=== PATIENT | female | born 1945 | race Caucasian/White ===

== ENCOUNTER → 2018-11-09 09:20 | Outpatient (POV) | payer MEDICARE, SELFPAY | PROVIDERS: Visit Provider Dermatology | DX: Z00.00 Encounter for general adult medical examination without abnormal findings (principal) ==

== ENCOUNTER → 2019-02-03 11:08 | Outpatient (CLI) | payer MEDICARE, SELFPAY ==
--- NOTE | 2019-02-03 11:15 | XR_ITS ---
XR shoulder RT min 2V HISTORY: Right shoulder pain ITS.REASON: IMPINGEMENT SYNDROME OF RT SHOULDER ORDERING PHYSICIAN: Sofia Reeder APRN PATIENT AGE: 74 years Comparison: None FINDINGS: There are mild osteoarthritic changes of the acromioclavicular joint with mild subacromial stenosis. No fracture or dislocation. No lytic or blastic change. 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
== END ==
PROVIDERS: PCP Nurse Practitioner Family; Visit Provider Nurse Practitioner Family
DX: M75.41 Impingement syndrome of right shoulder (principal)
CPT/HCPCS: 73030

== ENCOUNTER → 2019-02-07 09:34 | Outpatient (CLI) | payer MEDICARE, SELFPAY ==
--- NOTE | 2019-02-07 09:38 | XR_ITS ---
XR DEXA axial skeleton COMPARISON: Previous DEXA scan 05/22/2016 HISTORY: Patient is postmenopausal has had previous right hip replacement currently taking estrogen TECHNIQUE: DEXA scanning lumbar spine and left hip and left forearm: Findings: Lumbar spine: The areas BMD L1-L4 is 1.207 g/sq cm the T score of 0.2. This is a 0.2% interval decline in BMD from the previous exam. Left hip: Total BMD is 0.905 g/sq cm the T score -0.8 and the left femoral neck is 0.735 g/sq cm with a T score -2.2. This is a 3.3% interval decline in BMD from the previous study. Right forearm: The total BMD radius is -1.6. Impression: Normal T score lumbar spine, osteopenia range left hip and right forearm, consider follow-up study in 2 years IMPRESSION:
== END ==
PROVIDERS: PCP Internal Medicine Adolescent Medicine; Visit Provider Nurse Practitioner Family
DX: M85.89 Other specified disorders of bone density and structure, multiple sites (principal)
CPT/HCPCS: 77080

== ENCOUNTER → 2021-01-15 07:43 | Outpatient (CLI) | payer MEDICARE, SELFPAY ==
--- NOTE | 2021-01-15 07:47 | MR_ITS ---
PROCEDURE: MR LUMBAR SPINE WO CON CLINICAL INDICATION: LUMBAGO WITH SCIATICA COMPARISON: MR OPERATIONS EXAMINER/O MRI-L-SPINE W/O from 12/02/2016 TECHNIQUE: Standard multiplanar multiecho sequences are performed without contrast. 3-D MIP and myelographic images are also rendered and reviewed FINDINGS: The vertebral body heights are maintained. There is grade 1 retrolisthesis of L5 over S1 measuring 6 millimeters. Otherwise the alignment is maintained. Vertebral body bone marrow signal intensity is within normal limits without evidence of marrow infiltrative process. Minor multilevel disc desiccation with disc bulges are noted. The conus terminates at L1 level. 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 There is a focal T2 hyperintense lesion noted in the right kidney measuring 5.5 times 4.9 centimeters, demonstrates hypointensity on the T1 images, likely represents a cyst. Further details are as described below T12-L1: No significant canal or foraminal stenosis. L1-2: Broad-based disc bulge, bilateral facet joint and ligamentum flavum hypertrophy causes moderate canal narrowing. There is moderate to severe right foraminal narrowing. The left neural foramen is unremarkable. L2-3: Broad-based disc bulge, bilateral facet joint and ligamentum flavum hypertrophy causes moderate canal narrowing. There is moderate left and mild right foraminal narrowing. L3-4: Broad-based disc bulge, bilateral facet joint and ligamentum flavum hypertrophy causes moderate canal narrowing with crowding of the nerve roots within the thecal sac. There is severe left and moderate right foraminal narrowing. L4-5: There is broad-based disc bulge, and bilateral facet joint and ligamentum flavum hypertrophy causes moderate canal narrowing. There is severe right and moderate left foraminal narrowing. L5-S1 there is loss of disc height, broad-based disc osteophyte complex, worse on the left causes effacement of the left lateral recess and impingement on the traversing nerve roots. There is severe bilateral foraminal narrowing at this level. IMPRESSION: Grade 1 retrolisthesis of L5 over S1. Multilevel degenerative changes, worse at L3-4, L4-5 and L5-S1 with the moderate to severe foraminal narrowing as described above. There is moderate canal narrowing at L3-4 level. Dictated by: Marybeth Tobias 01/15/2021 12:55 Marybeth Tobias in [facility] 01/15/2021 12:55
== END ==
PROVIDERS: PCP Internal Medicine Adolescent Medicine; Visit Provider Nurse Practitioner Family
DX: M54.41 Lumbago with sciatica, right side (principal)
CPT/HCPCS: 72148; 76376

== ENCOUNTER → 2021-03-08 10:19 | Outpatient (CLI) | payer MEDICARE, SELFPAY ==
--- NOTE | 2021-03-08 10:23 | US_ITS ---
PROCEDURE: US THYROID CLINICAL INDICATION: THYROID NODULE COMPARISON: US THY US THYROID from 06/09/2016 FINDINGS: Right lobe: Right lobe is 4 x 1.8 x 1.7 cm. 7 mm hyperechoic nodule present in the mid polar region posteriorly. TR 3 less than 1.5 cm. There is heterogeneous echogenicity of the right lobe. Left lobe: 4.1 x 1.6 x 1.5 cm. A well-circumscribed 15 by 13 mm nodules present in the lower pole mostly slightly hyperechoic with decreased echogenicity centrally. TR 2. This nodule is not significantly changed. There is heterogeneous echogenicity of the left lobe. Isthmus: A 8 x 6 mm isoechoic nodule is present in the left aspect of the isthmus not demonstrated on previous exam. TR 2. Nodule is wider than tall well-circumscribed and without internal calcifications. Additional findings: IMPRESSION: Bilateral thyroid nodules TR 2 and TR 3. Recommend 12 month follow-up. Dictated by: Pradip Stanton MD 03/09/2021 07:33 Pradip Stanton MD in [facility] 03/09/2021 07:33
== END ==
PROVIDERS: PCP Internal Medicine Adolescent Medicine; Visit Provider Nurse Practitioner Family
DX: E04.1 Nontoxic single thyroid nodule (principal)
CPT/HCPCS: 76536

== ENCOUNTER → 2021-11-19 09:40 | Outpatient (POV) | payer MEDICARE, SELFPAY | PROVIDERS: Visit Provider Dermatology | DX: Z00.00 Encounter for general adult medical examination without abnormal findings (principal) ==

== ENCOUNTER → 2022-03-24 15:11 | Outpatient (CLI) | payer MEDICARE, SELFPAY ==
--- NOTE | 2022-03-24 15:13 | US_ITS ---
FINAL REPORT CLINICAL HISTORY: THYROID NODULE COMPARISON: March 08, 2021 FINDINGS: THYROID ULTRASOUND Sonographic images of the thyroid was obtained. The right lobe of the thyroid measures 4.1 x 2.2 x 1.6 cm. There is a solid hyperechoic nodule in the right lobe measuring 8 x 7 x 7 mm, TI-RADS 3. Was previously 8 x 7 x 4 mm, visually slightly larger. There is a solid hyperechoic nodule in the right lobe measuring 5 x 5 x 4 mm, TI-RADS 3. This was not well seen on the prior exam. The left lobe of the thyroid measures 3.9 x 1.7 x 1.3 cm. There is a 14 x 14 x 12 mm solid hyperechoic nodule in the left lobe, TI-RADS 3. Was previously 15 x 15 x 11 mm, not significantly changed. There is a left isthmus nodule measuring 8 x 7 x 4 mm and was previously 8 x 6 x 5 mm, not significantly changed. The isthmus measures 3 mm. IMPRESSION: Multiple bilateral nodules which are stable on the left and slightly increased or new on the right. Recommend additional follow-up in 12 months. Reviewed, Interpreted and Dictated by Lito Davila III, MD Transcribed by Carla Coyne Authenticated and [facility]
== END ==
PROVIDERS: PCP Internal Medicine Adolescent Medicine; Visit Provider Nurse Practitioner Family
DX: E04.1 Nontoxic single thyroid nodule (principal)
CPT/HCPCS: 76536

== ENCOUNTER → 2022-06-04 11:35 | Outpatient (CLI) | payer MEDICARE, SELFPAY | PROVIDERS: PCP Nurse Practitioner Family; Visit Provider Nurse Practitioner Family | DX: R85.5 Abnormal microbiological findings in specimens from digestive organs and abdominal cavity (principal) | CPT/HCPCS: 87177 ==

== ENCOUNTER 2024-05-02 16:26 | Emergency (ER) | payer MEDICARE, OTHER, SELFPAY ==
[2024-05-02 16:55] VITALS: BP 118/73; PULSE 59; RESP 20; TEMP 36.8; O2SAT 97; BMI 13.9
--- NOTE | 2024-05-02 17:12 | ED_ITS ---
Discharge Plan Disposition Patient Disposition: Home, Self-Care Condition: Good Prescriptions Prescriptions: New doxycycline hyclate 100 mg tablet 100 mg PO BID Qty: 20 0RF mupirocin 2 % ointment 1 applic topical TID Qty: 22 0RF Rx Instructions: apply to area on face as directed No Action alendronate [Fosamax] 70 mg tablet 70 mg PO QWEEK metoprolol succinate 50 mg capsule,sprinkle,ER 24hr 100 mg PO DAILY aspirin 81 mg tablet,delayed release (DR/EC) 81 mg PO DAILY cholecalciferol (vitamin D3) 1,000 unit capsule 1,000 unit PO DAILY ezetimibe-simvastatin [Vytorin 10-20] 10-20 mg tablet 1 tab PO DAILY celecoxib [Celebrex] 200 mg capsule 200 mg PO DAILY polyethylene glycol 3350 [Miralax] 17 gram/dose powder 17 g PO DAILY esomeprazole magnesium [Nexium] 40 mg capsule,delayed release(DR/EC) 40 mg PO DAILY azelastine 0.15 % (205.5 mcg) spray,non-aerosol 1 spray INTRANASAL BID mupirocin 2 % ointment 1 applic TOPICAL TID Qty: 22 0RF Referrals Follow up/Referrals: Carolina Jessica APRN [Primary Care Provider] - See instructions Activity Restrictions/Add. Instructions Additional Instructions/Restrictions: Use topical medication as prescribed Take oral antibitois as prescribed Follow up with your Family Doctor if no improvement or any worsening of symptoms Straight to ER if any life threatening symptoms Clinical Impressions Clinical Impression: Cellulitis Instructions Patient Instructions: Cellulitis, DI for Insect Bites and Stings [place] ED [place] Y[place] [facility] [place] General Stated complaint: sting on RT hand Mode of Arrival: Ambulatory Source of Information: Patient Limitations: No Limitations Time Seen by Provider: 05/02/24 17:16 Description of Symptoms (Recalled from Triage Doc. by RN): PATIENT STATES SHE WAS GETTING SOME JARS FROM UNDER THE PORCH AND WAS STUNG BY A WASP IN THE RIGHT HAND TODAY. PATIENT REPORTS AN ALLERGY TO WASP STINGS HEENT Symptoms (Recalled from RN notes): No Resp Symptoms (Recalled from RN notes): No Skin Symptoms (Recalled from RN notes): Yes MS Symptoms (Recalled from RN notes): No Functional Status (Recalled from RN notes): WNL History of Present Illness Provider Complaint: Patient states that she is allergic to wasp stings and she was getting out some jars when she was stung on her right wrist and it made her sick to her stomach so she came in States that when this happens she has to come in and get a shot to help with her reactions States also has a bite on her right jaw area that she thinks may be infected Related Data Home Medications Medication Instructions Recorded Confirmed alendronate 70 mg tablet (Fosamax) 70 mg PO QWEEK 06/06/19 09/21/21 aspirin 81 mg tablet,delayed 81 mg PO DAILY 06/06/19 09/21/21 release azelastine 205.5 mcg (0.15 %) 1 spray intranasal BID 06/06/19 09/21/21 nasal spray celecoxib 200 mg capsule (Celebrex) 200 mg PO DAILY 06/06/19 09/21/21 cholecalciferol (vitamin D3) 25 1,000 unit PO DAILY 06/06/19 09/21/21 mcg (1,000 unit) capsule esomeprazole magnesium 40 mg 40 mg PO DAILY 06/06/19 09/21/21 capsule,delayed release (Nexium) ezetimibe 10 mg-simvastatin 20 mg 1 tab PO DAILY 06/06/19 09/21/21 tablet (Vytorin) metoprolol succinate 50 mg capsule 100 mg PO DAILY 06/06/19 09/21/21 sprinkle, ext. release 24 hr polyethylene glycol 3350 17 17 g PO DAILY 06/06/19 09/21/21 gram/dose oral powder (Miralax) Previous Rx's Medication Instructions Recorded mupirocin 2 % topical ointment 1 applic topical TID #22 grams 09/21/21 doxycycline hyclate 100 mg tablet 100 mg PO BID #20 tabs 05/02/24 mupirocin 2 % topical ointment 1 applic topical TID #22 grams 05/02/24 Allergies Allergy/AdvReac Type Severity Reaction Status Date / Time propoxyphene [From Darvon] Allergy Severe RAPID Unverified 10/25/20 11:13 HEART BEAT/CHEST PAIN cephalexin [From Keflex] Allergy Intermediate Verified 10/25/20 11:13 hydrochlorothiazide Allergy Mild Verified 10/25/20 11:13 lubiprostone [From Amitiza] Allergy Mild Verified 10/25/20 11:13 pravastatin Allergy Mild Verified 10/25/20 11:13 pregabalin [From Lyrica] Allergy Mild Verified 10/25/20 11:13 acetaminophen [From Roxicet] Allergy Unknown VOMITING Unverified 10/25/20 11:13 atenolol [ATENOLOL] Allergy Unknown PAIN IN Unverified 10/25/20 11:13 LEGS atorvastatin [ATORVASTATIN] Allergy Unknown SORENESS Unverified 10/25/20 11:13 carvedilol [CARVEDILOL] Allergy Unknown SWELLING Unverified 10/25/20 11:13 codeine [CODEINE] Allergy Unknown CAN'T Unverified 10/25/20 11:13 SLEEP, HIVES lisinopril [LISINOPRIL] Allergy Unknown COUGH Unverified 10/25/20 11:13 meloxicam [MELOXICAM] Allergy Unknown SORENESS Unverified 10/25/20 11:13 oxycodone [From Roxicet] Allergy Unknown VOMITING Unverified 10/25/20 11:13 ramipril [RAMIPRIL] Allergy Unknown HIVES, RED Unverified 10/25/20 11:13 EYE shellfish derived Allergy Unknown ALLERGY Unverified 10/25/20 11:13 [From SHELLFISH (FOOD/DRUG)] TEST SHOWED valsartan [From DIOVAN] Allergy Unknown SLEEPLESSNE Unverified 10/25/20 11:13 SS amlodipine Allergy Verified 05/02/24 17:19 From SHELLFISH (FOOD/DRUG) Allergy Unknown ALLERGY Uncoded 10/25/20 11:13 TEST SHOWED Worker's Comp Is this a Worker's Comp case?: No [facility] Disclaimer: The information contained in this section may have been updated after the patient was seen, as this information can be updated by other users. Social History Smoking Status: Never smoker alcohol intake: never substance use type: denies use current occupational status: retired Travel in the last 8 weeks: None ROS Obtained: Yes All systems reviewed & no additional complaints except as documented and Yes Systems reviewed as appropriate & no additional complaints except as documented Constitutional Constitutional: Reports system reviewed and no additional complaints, except as documented, Reports as per HPI, Denies body ache, Denies chills and Denies fever(s) ENT Ears, Nose, Mouth, and Throat: Reports system reviewed and no additional complaints, except as documented and Reports as per HPI Cardiovascular Cardiovascular: Reports system reviewed and no additional complaints, except as documented and Reports as per HPI Respiratory Respiratory: Reports system reviewed and no additional complaints, except as documented, Reports as per HPI, Denies shortness of breath and Denies wheezing Gastrointestinal Gastrointestingal: Reports system reviewed and no additional complaints, except as documented and as per HPI Musculoskeletal Musculoskeletal: Reports system reviewed and no additional complaints, except as documented and Reports as per HPI Integumentary/Breasts Skin/Breast: Reports system reviewed and no additional complaints, except as documented, Reports as per HPI and Reports other (sting on right wrist and bite on right cheek area) Allergic/Immunologic Allergic/Immunologic: Denies wheezing Physical Exam General General appearance: alert and in no apparent distress Expanded Head Exam Head image: 2 1. small scabbed area noted Respiratory Respiratory exam: Present normal lung sounds bilaterally; Absent respiratory distress or wheezes Cardiovascular Cardiovascular exam: Present regular rate, normal rhythm and normal heart sounds Expanded Upper Extremity Exam Right: Hand L/R front image: 2 1. other (small red area noted no swelling, no obvious sting area noted) Neurological Exam Neurological exam: Present alert, oriented X3 and normal gait Medical Decision Making Yandel Inquiry Pt receiving controlled substance: No Yandel was queried for this patient: No Vital Signs: 05/02/24 16:55 Temperature 98.2 F Temperature Source Oral Pulse Rate [Left Brachial] 59 L Respiratory Rate 20 Blood Pressure [Left Arm] 118/73 Blood Pressure Mean [Left Arm] 88 Blood Pressure Source [Left Arm] Automatic Cuff Blood Pressure Position [Left Arm] Sitting 02 Sat by Pulse Oximetry 97 Oxygen Delivery Method Room Air Medical Decision Narrative: Spoke patients PCP and advised of place with redness on right jaw area and concern for infection, and no obvious swelling to what patient reports as bee sting on right wrist will give Doxy and mupirocin and patient has Tricinalone cream at home and follow up with PCP if needed Patient has taken DOxy in the past without complications or reactions
[2024-05-02 17:38] VITALS: BP 118/73; PULSE 59; RESP 20; TEMP 36.8; O2SAT 97
== END 2024-05-02 17:44 | disposition home or self-care (01) ==
PROVIDERS: Emergency Provider Nurse Practitioner; PCP Nurse Practitioner Family
DX: L03.211 Cellulitis of face (principal); S60.561A Insect bite (nonvenomous) of right hand, initial encounter; W57.XXXA Bitten or stung by nonvenomous insect and other nonvenomous arthropods, initial encounter
CPT/HCPCS: 99204; 99212; G0463